=== PATIENT | male | born 1965 | race Caucasian/White ===

== ENCOUNTER 2018-04-08 20:11 | Inpatient (IN) | payer MEDICARE ==
[2018-04-08] MEDS ORDERED: Sodium Chloride 0.9% 1,000 ML IV ONE (20:28)
[2018-04-08] MEDS ORDERED: HYDROmorphone 1 MG/ML Syringe IVPUSH ONE (21:00)
--- NOTE | 2018-04-08 21:08 | EDM.PDOC ---
ED HPI GENERAL MEDICAL PROBLEM - General Chief Complaint: General Stated Complaint: fever, back spasms Time Seen by Provider: 04/08/18 20:23 Source of Information: Reports: Patient History Limitations: Reports: No Limitations - History of Present Illness INITIAL COMMENTS - FREE TEXT/NARRATIVE: Pt. presents to ER with complaints of fever, lower extremity pain, erythema and swelling, and back muscle spasms. He states that he has been feeling poorly for several days. Symptoms consist of lightheadedness, chills and fever. He states that he has had increased pain and swelling to his lower legs. notes that they are more erythematous and warm to touch. He has increased discomfort with palpation of manipulation of the feet and lower legs. He has been experiencing the discomfort to the legs and fever and chills for 4 days. He does have a history of psoriasis, but the erythema appears to be an acute problem. Denies any cough, but complains of mild increased dyspnea. States the he took pyridium prior to coming to ER due to increased edema to lower extremities. Onset Date: 04/04/18 Duration: Constant, Getting Worse Associated Symptoms: Reports: Fever/Chills, Shortness of Breath, Other ( lightheadedness) - Related Data Allergies Allergy/AdvReac Type Severity Reaction Status Date / Time Penicillins Allergy Anaphylactic Verified 04/08/18 20:49 Shock venom-honey bee Allergy Anaphylactic Verified 04/08/18 20:49 [bee venom (honey bee)] Shock Home Meds: Home Meds Aspirin [Ecotrin] 325 mg PO DAILY 09/12/13 [History] Cyclobenzaprine [Flexeril] 10 mg PO TID 09/12/13 [History] Diazepam [Valium] 2 mg PO TID 09/12/13 [History] Ibuprofen [Advil Migraine] 200 mg PO BID 09/12/13 [History] Pregabalin [Lyrica] 200 mg PO TID 09/12/13 [History] hydrOXYzine pamoate [Vistaril] 50 mg PO QID PRN 09/12/13 [History] Docusate Sodium/Sennosides [Senna Plus] 2 tab PO BID 09/09/15 [History] Magnesium Oxide/Mag AA Chelate [Magnesium] 300 mg PO BID 09/09/15 [History] Ranitidine HCl [Zantac] 75 mg PO BID PRN 09/09/15 [History] EPINEPHrine [Epipen] 1 pen IM ASDIRECTED PRN 04/08/18 [History] oxyCODONE HCl [Oxycodone HCl] 10 mg PO Q4H PRN 04/08/18 [History] oxyCODONE HCl [Oxycontin] 40 mg PO TID 04/08/18 [History] Past Medical History Musculoskeletal History: Reports: Back Pain, Chronic Psychiatric History: Reports: Depression Dermatologic History: Reports: Psoriasis Other Dermatologic History: knees, back of ears, feet - Past Surgical History Musculoskeletal Surgical History: Reports: Other (See Below) 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 Social & Family History - Family History Family Medical History: Noncontributory Other Dermatologic Family History: Adopted - Tobacco Use Smoking Status *Q: Current Every Day Smoker Years of Tobacco use: 30 Packs/Tins Daily: 1 - Recreational Drug Use Recreational Drug Use: No ED ROS GENERAL - Review of Systems Review Of Systems: See Below Constitutional: Reports: Fever, Chills, Malaise, Fatigue HEENT: Reports: No Symptoms Respiratory: Reports: Shortness of Breath Cardiovascular: Reports: No Symptoms Endocrine: Reports: No Symptoms GI/Abdominal: Reports: No Symptoms : Reports: No Symptoms Musculoskeletal: Reports: Other (See HPI.) Skin: Reports: No Symptoms Neurological: Reports: No Symptoms Psychiatric: Reports: No Symptoms Hematologic/Lymphatic: Reports: No Symptoms Immunologic: Reports: No Symptoms ED EXAM, GENERAL - Physical Exam Exam: See Below Exam Limited By: No Limitations General Appearance: Alert, WD/WN, No Apparent Distress Eye Exam: Bilateral Eye: EOMI, Normal Fundi, Normal Inspection, PERRL Throat/Mouth: Normal Inspection, Normal Lips, Normal Oropharynx, Normal Voice, No Airway Compromise Head: Atraumatic, Normocephalic Neck: Normal Inspection, Supple, Non-Tender, Full Range of Motion Respiratory/Chest: No Respiratory Distress, Lungs Clear, Normal Breath Sounds, No Accessory Muscle Use, Chest Non-Tender Cardiovascular: Normal Peripheral Pulses, No Gallop, No JVD, No Rub, Tachycardia Peripheral Pulses: 3+: Radial (R) GI/Abdominal: Normal Bowel Sounds, Soft, Non-Tender, No Organomegaly, No Distention, No Abnormal Bruit, No Mass (Male) Exam: Deferred Rectal (Males) Exam: Deferred Back Exam: Normal Inspection, Full Range of Motion, Muscle Spasm, Paraspinal Tenderness. No: CVA Tenderness (L), CVA Tenderness (R) Extremities: Other (peripheral edema, erythema, and discomfort to lower extremities) Neurological: Alert, Oriented, CN II-XII Intact, Normal Cognition, Normal Gait, Normal Reflexes, No Motor/Sensory Deficits Psychiatric: Normal Affect, Normal Mood Skin Exam: Erythema (lower extremities) Lymphatic: No Adenopathy Course - Vital Signs Last Recorded V/S: Last Vital Signs Temp 39.3 C H 04/08/18 22:25 Pulse 94 04/08/18 22:25 Resp 16 04/08/18 22:25 BP 129/73 04/08/18 22:25 Pulse Ox 97 04/08/18 22:25 - Orders/Labs/Meds Orders: Active Orders 24 hr Category Date Time Status Patient Status [ADT] Routine ADT 04/08/18 22:58 Ordered EKG Documentation Completion [RC] STAT Care 04/08/18 20:24 Active Chest 1V Frontal [CR] Stat Exams 04/08/18 20:25 Taken Chest w Cont [CT] Stat Exams 04/08/18 21:23 Taken CULTURE BLOOD [BC] Stat Lab 04/08/18 20:28 Received CULTURE BLOOD [BC] Stat Lab 04/08/18 20:50 Received Sodium Chloride 0.9% [Saline Flush] Med 04/08/18 20:24 Active 10 ml FLUSH ASDIRECTED PRN Blood Culture x2 Reflex Set [OM.PC] Stat Oth 04/08/18 20:24 Ordered Peripheral IV Insertion Adult [OM.PC] Routine Oth 04/08/18 20:24 Ordered Medication Orders Sodium Chloride (Saline Flush) 10 ml FLUSH ASDIRECTED PRN PRN Reason: Keep Vein Open Labs: Laboratory Tests 04/08/18 04/08/18 04/08/18 Range/Units 20:24 20:28 20:50 WBC 15.0 H (4.0-10.0) x10^3/uL RBC 4.10 L (4.5-6.0) x10^6/uL Hgb 12.4 L (14.0-18.0) g/dL Hct 36.2 L (40.0-52.0) % MCV 88.3 (78.0-93.0) fL MCH 30.2 (26.0-32.0) pg MCHC 34.3 (32.0-36.0) g/dL RDW Coeff of Seth 15.8 H (10.0-15.0) % Plt Count 308 (130-400) x10^3/uL Neut % (Auto) 73.5 (50.0-80.0) % Lymph % (Auto) 17.3 L (25.0-50.0) % Jones % (Auto) 7.7 (2.0-11.0) % Eos % (Auto) 1.0 (0.0-4.0) % Baso % (Auto) 0.5 (0.2-1.2) % PT 9.5 L (9.6-11.4) SEC INR 0.9 L (2.0-3.5) Sodium (136-145) mmol/L Potassium (3.5-5.1) mmol/L Chloride (98-107) mmol/L Carbon Dioxide (21-32) mmol/L Anion Gap (10-20) mmol/L BUN (7-18) mg/dL Creatinine (0.70-1.30) mg/dL Est Cr Clr Drug Dosing mL/min Estimated GFR (MDRD) Glucose (74-106) mg/dL Lactic Acid (0.4-2.0) mmol/L Calcium (8.5-10.1) mg/dL Corrected Calcium (8.5-10.1) mg/dL Phosphorus (2.6-4.7) mg/dL Magnesium (1.8-2.4) mg/dL Total Bilirubin (0.2-1.0) mg/dL AST (15-37) U/L ALT (16-63) U/L Alkaline Phosphatase (46-116) U/L Troponin I (<=0.056) ng/mL C-Reactive Protein (<=0.9) mg/dL NT-Pro-B Natriuret Pep (<=125) pg/mL Total Protein (6.4-8.2) g/dL Albumin (3.4-5.0) g/dL Globulin Albumin/Globulin Ratio TSH, Ultra Sensitive (0.358-3.74) uIU/mL Urine Color [place] H (YELLOW) Urine Appearance Slightly cloudy H (CLEAR) Urine pH 5.5 (5.0-8.0) Ur Specific [place] 1.015 Urine Protein Trace H (NEGATIVE) mg/dL Urine Glucose (UA) 100 H (NEGATIVE) mg/dL Urine Ketones Negative (NEGATIVE) mg/dL Urine Occult Blood Negative (NEGATIVE) Urine Nitrite Positive H (NEGATIVE) Urine Bilirubin Negative (NEGATIVE) Urine Urobilinogen 1.0 (0.2) EU/dL Ur Leukocyte Esterase Negative (NEGATIVE) Urine RBC 0-5 (NOT SEEN) /HPF Urine WBC 0-5 (NOT SEEN) /HPF Ur Squamous Epith Cells Not seen (NEGATIVE) /HPF Urine Bacteria Few H (NEGATIVE) /HPF Urine Mucus Rare H (NEGATIVE) /LPF 04/08/18 04/08/18 Range/Units 20:50 20:50 WBC (4.0-10.0) x10^3/uL RBC (4.5-6.0) x10^6/uL Hgb (14.0-18.0) g/dL Hct (40.0-52.0) % MCV (78.0-93.0) fL MCH (26.0-32.0) pg MCHC (32.0-36.0) g/dL RDW Coeff of Seth (10.0-15.0) % Plt Count (130-400) x10^3/uL Neut % (Auto) (50.0-80.0) % Lymph % (Auto) (25.0-50.0) % Jones % (Auto) (2.0-11.0) % Eos % (Auto) (0.0-4.0) % Baso % (Auto) (0.2-1.2) % PT (9.6-11.4) SEC INR (2.0-3.5) Sodium 134 L (136-145) mmol/L Potassium 3.8 (3.5-5.1) mmol/L Chloride 102 (98-107) mmol/L Carbon Dioxide 24 (21-32) mmol/L Anion Gap 11.8 (10-20) mmol/L BUN 11 D (7-18) mg/dL Creatinine 1.3 D (0.70-1.30) mg/dL Est Cr Clr Drug Dosing 72.40 mL/min Estimated GFR (MDRD) 58 Glucose 111 H (74-106) mg/dL Lactic Acid 0.9 (0.4-2.0) mmol/L Calcium 8.7 (8.5-10.1) mg/dL Corrected Calcium 9.26 (8.5-10.1) mg/dL Phosphorus 2.2 L (2.6-4.7) mg/dL Magnesium 1.9 (1.8-2.4) mg/dL Total Bilirubin 0.3 (0.2-1.0) mg/dL AST 22 (15-37) U/L ALT 30 (16-63) U/L Alkaline Phosphatase 96 (46-116) U/L Troponin I < 0.017 (<=0.056) ng/mL C-Reactive Protein 12.2 H (<=0.9) mg/dL NT-Pro-B Natriuret Pep 116 (<=125) pg/mL Total Protein 7.6 (6.4-8.2) g/dL Albumin 3.3 L (3.4-5.0) g/dL Globulin 4.3 Albumin/Globulin Ratio 0.77 TSH, Ultra Sensitive 1.393 (0.358-3.74) uIU/mL Urine Color (YELLOW) Urine Appearance (CLEAR) Urine pH (5.0-8.0) Ur Specific [place] Urine Protein (NEGATIVE) mg/dL Urine Glucose (UA) (NEGATIVE) mg/dL Urine Ketones (NEGATIVE) mg/dL Urine Occult Blood (NEGATIVE) Urine Nitrite (NEGATIVE) Urine Bilirubin (NEGATIVE) Urine Urobilinogen (0.2) EU/dL Ur Leukocyte Esterase (NEGATIVE) Urine RBC (NOT SEEN) /HPF Urine WBC (NOT SEEN) /HPF Ur Squamous Epith Cells (NEGATIVE) /HPF Urine Bacteria (NEGATIVE) /HPF Urine Mucus (NEGATIVE) /LPF Meds: Medications Generic Name Dose Route Start Last Admin Trade Name Freq PRN Reason Stop Dose Admin Sodium Chloride 10 ml 04/08/18 20:24 Saline Flush FLUSH ASDIRECTED PRN Keep Vein Open Discontinued Medications Generic Name Dose Route Start Last Admin Trade Name Freq PRN Reason Stop Dose Admin Ceftriaxone Sodium 2 gm 04/08/18 21:21 04/08/18 21:27 Rocephin IVPUSH 04/08/18 21:22 2 gm STAT ONE Administration Hydromorphone HCl 1 mg 04/08/18 21:00 04/08/18 21:06 Dilaudid IVPUSH 04/08/18 21:01 1 mg ONETIME ONE Administration Sodium Chloride 1,000 mls @ 1,000 mls/hr 04/08/18 20:28 04/08/18 20:32 Normal Saline IV 04/08/18 21:27 1,000 mls/hr .BOLUS ONE Administration Iopamidol 100 ml 04/08/18 21:39 04/08/18 21:55 Isovue-300 (61%) IVPUSH 04/08/18 21:40 100 ml ONETIME ONE Administration Lorazepam 1 mg 04/08/18 21:42 04/08/18 21:46 Ativan IVPUSH 04/08/18 21:43 1 mg ONETIME ONE Administration - Radiology Interpretation Free Text/Narrative:: bilateral hilar adenopathy with pleural nodule of infectious etiology noted on CT scan of chest. No other acute pathology noted. Departure - Departure Time of Disposition: 23:08 Disposition: Admitted As Inpatient 68 Condition: Good Clinical Impression: CAP (community acquired pneumonia), UTI (urinary tract infection) - Discharge Information Referrals: Jay Jay Whalen MD [Primary Care Provider] - Forms: ED Department Discharge - Problem List Review Problem List Initiated/Reviewed/Updated: Yes - My Orders Last 24 Hours: My Active Orders 04/08/18 20:24 EKG Documentation Completion [RC] STAT Sodium Chloride 0.9% [Saline Flush] 10 ml FLUSH ASDIRECTED PRN Blood Culture x2 Reflex Set [OM.PC] Stat Peripheral IV Insertion Adult [OM.PC] Routine 04/08/18 20:25 Chest 1V Frontal [CR] Stat 04/08/18 20:28 CULTURE BLOOD [BC] Stat 04/08/18 20:50 CULTURE BLOOD [BC] Stat 04/08/18 21:23 Chest w Cont [CT] Stat 04/08/18 22:58 Patient Status [ADT] Routine - Assessment/Plan Last 24 Hours: My Active Orders 04/08/18 20:24 EKG Documentation Completion [RC] STAT Sodium Chloride 0.9% [Saline Flush] 10 ml FLUSH ASDIRECTED PRN Blood Culture x2 Reflex Set [OM.PC] Stat Peripheral IV Insertion Adult [OM.PC] Routine 04/08/18 20:25 Chest 1V Frontal [CR] Stat 04/08/18 20:28 CULTURE BLOOD [BC] Stat 04/08/18 20:50 CULTURE BLOOD [BC] Stat 04/08/18 21:23 Chest w Cont [CT] Stat 04/08/18 22:58 Patient Status [ADT] Routine Plan: will be admitted acute, Dr. Reyna for [facility]. He is a code 1. He was given a liter of NS IV and rocephin 2 gm IV. Family is in attendance.
[2018-04-08 21:21] LABS: CHLORIDE,CL 102 mmol/L (98-107); SODIUM,NA 134 mmol/L (136-145)
[2018-04-08] MEDS ORDERED: cefTRIAXone 2 GM Vial IVPUSH ONE (21:21)
[2018-04-08 21:22] LABS: ANION GAP 11.8 mmol/L (10-20)
[2018-04-08] MEDS ORDERED: Iopamidol 612 MG/ML 100 ML Bottle IVPUSH ONE (21:39)
[2018-04-08] MEDS ORDERED: LORazepam 2 MG/ML SDV IVPUSH ONE (21:42)
[2018-04-08] MEDS ORDERED: Acetaminophen 500 MG Tab PO ONE (23:02)
[2018-04-08] MEDS ORDERED: EPINEPHrine 1 MG/ML SDV IM PRN (23:43)
[2018-04-08] MEDS ORDERED: hydrOXYzine HCl 25 MG Tab PO PRN (23:43)
[2018-04-08] MEDS ORDERED: RANITIDINE HCL 75 MG PO PRN (23:43)
[2018-04-08] MEDS ORDERED: oxyCODONE 5 MG Tab PO PRN (23:43)
[2018-04-08] MEDS: Sodium Chloride 0.9% 1,000 ML IV SCH (23:45)
[2018-04-08] MEDS ORDERED: HYDROmorphone 1 MG/ML Syringe IVPUSH PRN (23:46)
[2018-04-08] MEDS ORDERED: Promethazine 25 MG Tab PO PRN (23:46)
[2018-04-08] MEDS ORDERED: Ibuprofen 200 MG Tab PO PRN (23:52)
[2018-04-08] MEDS: Sodium Chloride 0.9% 10 ML Syringe FLUSH PRN (23:57)
[2018-04-09] MEDS ORDERED: Famotidine 20 MG Tab PO PRN (00:05)
[2018-04-09] MEDS ORDERED: Acetaminophen 325 MG Tab PO PRN (00:07)
[2018-04-09] MEDS: Pregabalin 50 MG Cap PO SCH ×4 (00:31→22:27)
[2018-04-09] MEDS: Aspirin 325 MG Tab.EC PO SCH ×2 (00:32→07:29)
[2018-04-09] MEDS: Diazepam 2 MG Tab PO SCH ×4 (00:33→22:27)
[2018-04-09] MEDS: Azithromycin 500 MG in Sodium Chloride 0.9% 250 ML IV SCH ×2 (00:35→20:04)
--- NOTE | 2018-04-09 04:02 | HP ---
CHIEF COMPLAINT: Cough, fever, and chills. HISTORY OF PRESENT ILLNESS: This is a 52-year-old male who did run out of his pain pills about 4 days ago, but did get them refilled today. Yesterday, he began having fevers in the evening. He has been coughing for a few days prior to that. It is nonproductive. He had no shortness of breath. He denied any new abdominal pain, nausea, or vomiting, but does have some abdominal discomfort from a previous back surgery that was done through an anterior approach. He has had significant back history of 6 surgeries and continued phantom pain in his legs. He states that has not changed. He otherwise has only a history of pneumonia when he was a little kid. He does have psoriasis on his skin. He has some tenderness over the right leg, but on the left ankle, there was a little bit of redness and warmth, potentially a cellulitis. He came into the emergency room tonight for his symptoms. He ended up with a chest CT, which showed him to have findings consistent with an infectious process in the bilateral hilar and mediastinal lymphadenopathy. CT was done due to changes found on the chest x- ray. The patient denies any chest pain. He did get 1 mg of Dilaudid in the ER. Blood pressure was quite elevated, pulse was over 100. At one point, his temperature went up to 104.3. The patient received Rocephin in the ER. ALLERGIES: Include penicillin and bee venom. MEDICATIONS: His medication list is reviewed. Lyrica 200 3 times a day, OxyContin 40 3 times a day, Valium 2 mg 3 times a day, Vistaril 4 times a day as needed for anxiety, oxycodone 10 mg every 4 hours as needed for severe pain, Flexeril 10 mg 3 times a day, aspirin 325 daily, epinephrine as needed for bee stings, Motrin 200 mg twice daily, and senna plus 2 tabs b.i.d. PAST MEDICAL HISTORY: Includes previous lumbar disk herniation with multiple surgeries, history of depression, psoriasis, hyperlipidemia, previous elevated liver enzymes, he denies any significant alcohol use, chronic low back pain, smoking, essential hypertension, left leg weakness, and chronic opioid use. PAST SURGICAL HISTORY: The patient has had multiple back surgeries as reported above. SOCIAL HISTORY: He is . He does smoke. He rarely drinks alcohol. FAMILY HISTORY: He is adopted. REVIEW OF SYSTEMS: General: No weight changes, but has had fever and chills. HEENT: No sore throat, but he has had some sinus congestion. Cardiac: No chest pain, palpitations, or shortness of breath. Respiratory: He has had cough. GI: As stated in the HPI. : He denied any burning with urination. He did try to take an azo pill for some reason. There was some question if he had a UTI or not, but he had 0 to 5 wbcs and rbcs. Musculoskeletal: He has a chronic back pain. No changes there. Otherwise, all systems reviewed and found to be negative unless otherwise stated. He does have a little bit more anxiety this evening possibly due to acute illness. On skin exam, he has psoriasis, which is unchanged. PHYSICAL EXAMINATION: Vital Signs: Weight 90.7 kg, temp 102.7, pulse 94, respiratory rate 16, O2 97% on room air, initially 94 on room air, and blood pressure 129/73. General: He is in no acute distress. Heart: Regular rate and rhythm with mild tachycardia and a murmur. Lungs: Sounds are decreased especially over the right base. No crackles or wheezes appreciated. Abdomen: Nondistended. Mildly tender over the left side. He reports this is chronic muscle pain. Extremities: Warm and dry. He has just trace edema and warmth with minimal redness over the left ankle with some psoriasis changes to both legs. He reports more tenderness over a lateral psoriasis lesion on the right calf. Left foot drop which is chronic. Mental Status: He is alert. He is orientated x3. He is answering questions appropriately. LABORATORY DATA: White count 15, hemoglobin 12.4, and platelets 308. INR is 0.9. Sodium 134, potassium 3.8, chloride 102, bicarb 24, BUN 11, creatinine 1.3, glucose 111, lactic 0.9, calcium 8.7, phosphorus 2.2, mag 1.9, bili 0.3, AST 22, ALT 30. Troponin negative. CRP elevated 12.2. BNP 116. Albumin 3.3. TSH 1.3. UA did show positive nitrates, but 0 to 5 rbc and wbc. Chest x-ray reviewed, no significant infiltrate appreciated, but CT again findings did show the multiple segmental and subsegmental areas of peripheral consolidation. EKG showed a sinus rhythm with QTc 385, minimally short [place] interval, rate 94. ASSESSMENT AND PLAN: 1. Sepsis due to a community-acquired pneumonia with fever, tachycardia, and leukocytosis may also be some element of opioid withdrawal. However, he has been restarted on his opioids today. 2. Chronic opioid use and dependence. 3. Chronic back pain and lumbar radiculopathy, status post multiple back surgeries. 4. Essential hypertension, elevated on admission, but improved with pain management. 5. Psoriasis with some left lower extremity possible cellulitis. His antibiotics will cover for that as well. 6. Underlying mood disorder with anxiety. He has hydroxyzine p.r.n. 7. Smoking. PLAN: At this point, the patient is admitted for acute cares. I will go ahead and continue IV Rocephin 1 g daily. I will start him on some IV Zithromax this evening. We will do sputum cultures. Blood cultures have already been sent. We will repeat a lactic acid. We will repeat lab work in the morning. The patient will continue on IV fluids. We will have him on incentive spirometry. We will continue with pain management medications as the same as at home and I will have some p.r.n. Dilaudid available. He will be able to take Motrin and Tylenol for fevers. The patient is a code level 1. For DVT prophylaxis, he will be on Lovenox. Influenza testing planned. MKA: 04/09/2018 00:06:48 MODL: 04/09/2018 03:56:06 /[id number]
[2018-04-09] MEDS: Enoxaparin 40 MG/0.4 ML Syringe SUBCUT SCH (06:29)
[2018-04-09 07:23] LABS: ANION GAP 8.7 mmol/L (10-20)
[2018-04-09] MEDS ORDERED: Cyclobenzaprine 10 MG Tab PO SCH (08:00)
[2018-04-09] MEDS ORDERED: oxyCODONE ER 20 MG TAB.ER PO SCH ×2 (08:00→14:00)
[2018-04-09] MEDS ORDERED: Diazepam 2 MG Tab PO SCH (08:00)
[2018-04-09] MEDS: Magnesium Oxide 400 MG Tab PO SCH ×2 (09:01→19:57)
[2018-04-09] MEDS: Nicotine 14 MG/24 Hr Patch TRDERM SCH (09:02)
[2018-04-09] MEDS: Sodium Chloride 0.9% 1,000 ML IV SCH ×2 (10:07→18:04)
[2018-04-09] MEDS: Cyclobenzaprine 10 MG Tab PO SCH ×2 (13:08→22:26)
--- NOTE | 2018-04-09 15:41 | PN ---
Progress Note for THIEN TOSCANO Date: 04/09/2018 Room #: VM.215 SUBJECTIVE: This is hospital day #2 on a 52-year-old admitted last evening with sepsis due to community-acquired pneumonia. The patient's fever has gone down overnight from a T-max of 104.3 around midnight to 100.6 around 6 a.m. He states he is a little bit out of it at times. He is still coughing, but he is not coughing up anything. He has some burning in his chest. It is worse with deep breaths. He did have a CT that was negative for PE last night. He otherwise has muscular pains in his muscles on the abdomen, but no abdominal pain and no nausea, no vomiting. He was also suspected to have a cellulitis on his left lower extremity. He did get IV Rocephin and IV Zithromax. He does state that not smoking will cause him to be a little anxious. He would like a nicotine patch. He has not received any additional doses of IV Dilaudid or any p.r.n. oxycodone. He has only been on his scheduled OxyContin 40 mg t.i.d. that he was on at home. OBJECTIVE: Vital Signs: His temperature 100.6, pulse 89, blood pressure 126/72, respiratory rate 20, and O2 93% on room air. General: He is in no acute distress. Heart: Regular rate and rhythm. Murmur is not appreciated this morning. Lungs: Sounds are clear to auscultation bilaterally without crackles or wheezes. Much clearer than admission. Abdomen: Nondistended. No significant tenderness. He points to both upper and lateral areas as an area of discomfort in the muscles. Skin: Does still show some redness with psoriasis plaquing over the left al area. No tenderness. No edema. Extremities: He does have a chronic left footdrop. Mental Status: He is alert and orientated x3. He is aware that he is at [facility]. LABORATORY DATA: Lab work showed white count improved from 15 to 11.7, hemoglobin 12.4, platelets 298. Sodium 138, potassium 3.7, chloride 105, bicarb 28, BUN 9, creatinine 1.3. Lactic acid 0.7. Flu testing is negative. ASSESSMENT AND PLAN: 1. Sepsis related to community-acquired pneumonia. Blood cultures and sputum cultures are pending. We will continue IV Rocephin and IV Zithromax. The patient was only admitted less than 12 hours ago. 2. Chronic pain and opioid use with dependence. He is overly sedated now that he is back on his Valium and OxyContin. He had been off it for several days. I am going to decrease his OxyContin to 20 mg t.i.d., which is 50% reduction in dose. 3. Chronic back pain with lumbar radiculopathy, status post multiple back surgeries. 4. Essential hypertension, blood pressure controlled. He is on no medications. 5. Psoriasis. 6. Anxiety. 7. DVT prophylaxis. He is on Lovenox. 8. Smoking. We will start a nicotine patch. PLAN: At this point, patient will continue with acute cares with IV fluids and IV antibiotics. We will repeat lab work tomorrow. Anticipate if he continues to improve, he will be discharged as soon as tomorrow on oral antibiotics. MKA: 04/09/2018 15:00:01 MODL: 04/09/2018 15:35:31 /[id number]
[2018-04-09] MEDS: Sodium Chloride 0.9% 10 ML Syringe FLUSH PRN (19:57)
[2018-04-09] MEDS: cefTRIAXone 1 GM Vial IVPUSH SCH (19:57)
[2018-04-09] MEDS: oxyCODONE ER 20 MG TAB.ER PO SCH (22:29)
[2018-04-10] MEDS: Sodium Chloride 0.9% 1,000 ML IV SCH (02:14)
[2018-04-10] MEDS: Enoxaparin 40 MG/0.4 ML Syringe SUBCUT SCH (06:07)
[2018-04-10 07:06] LABS: ANION GAP 11.6 mmol/L (10-20); CHLORIDE,CL 107 mmol/L (98-107); SODIUM,NA 138 mmol/L (136-145)
[2018-04-10] MEDS: Diazepam 2 MG Tab PO SCH ×3 (08:30→22:41)
[2018-04-10] MEDS: Pregabalin 50 MG Cap PO SCH ×3 (08:30→22:40)
[2018-04-10] MEDS: Cyclobenzaprine 10 MG Tab PO SCH ×3 (08:30→22:41)
[2018-04-10] MEDS: oxyCODONE ER 20 MG TAB.ER PO SCH ×3 (08:30→22:41)
[2018-04-10] MEDS: Aspirin 325 MG Tab.EC PO SCH (08:30)
[2018-04-10] MEDS ORDERED: Azithromycin 250 MG Tab PO SCH ×2 (08:30→20:00)
[2018-04-10] MEDS: Magnesium Oxide 400 MG Tab PO SCH ×2 (08:30→19:34)
[2018-04-10] MEDS: Nicotine 14 MG/24 Hr Patch TRDERM SCH (08:31)
[2018-04-10] MEDS: Albuterol/Ipratropium 3.0-0.5 MG/3 ML Neb Soln NEB PRN (08:58)
--- NOTE | 2018-04-10 09:21 | PN ---
Progress Note for THIEN TOSCANO Date: 04/10/2018 Room #: VM.215 SUBJECTIVE: This is full hospital day #2 on a 52-year-old admitted with fever. He states now he had fever for several days before he came in, mostly at night. He had no fever yesterday until during the night he went up to 102. He states he got panicky. He had a hard time breathing. The same thing was happening at home. He was wheezing. He has no history of asthma, but he has been a smoker. He otherwise states his pain has been under good control, but he did not sleep well due to the fever. His cough is still dry, it has not gotten any better or worse. OBJECTIVE: Vital Signs: His T-max was 102.2 at 2:00 a.m. Current temperature 97.8, pulse 90, blood pressure 123/79, respiratory rate 18, O2 of 93% on room air. General: He is in no acute distress. Heart: Regular rate and rhythm. Lungs: Lung sounds are clear to auscultation bilaterally without crackles or wheezes. Extremities: Warm and dry. The redness over the left leg has resolved. He still has psoriasis changes. Left footdrop is still noted. Mental Status: He is alert and orientated x3. LABORATORY DATA: White count 9.8, hemoglobin 11.3, platelets 273. Sodium 138, potassium 3.6, chloride 107, bicarb 23, BUN 10, creatinine 1.1, calcium 8.3. ASSESSMENT: 1. Sepsis related to community-acquired pneumonia, improving. He had just 1 fever in the last 24 hours. Blood cultures have been negative. He has been unable to obtain sputum. We will continue IV Rocephin and switch his Zithromax over to oral. We will continue with another day of treatment due to recent fever. 2. Chronic pain and opioid use and dependence. He is actually requiring significantly lower doses here and feels his pain is under control. He has not used 1 p.r.n. oxycodone, and due to sedation from 40 mg of OxyContin, I decreased him to 20 mg t.i.d. and that seems to be going well. 3. Chronic back pain with lumbar radiculopathy, status post multiple surgeries. 4. Essential hypertension. Blood pressure is controlled off medications. 5. Psoriasis. 6. Anxiety. 7. Deep venous thrombosis prophylaxis. He is on Lovenox. 8. Smoking, on the nicotine patch. PLAN: At this point, we will continue acute cares with IV Rocephin, oral Zithromax and continue to monitor for further fevers. At this point, he is still doing well and improving. I do not feel further workup for fever of unknown origin is indicated, especially given the fact that he had ran out of his pain pills prior to coming in, and this certainly could have caused some of the discomfort and anxiety with fevers at home; however, he was 104 here, now improved down to 102. MKA: 04/10/2018 08:32:27 MODL: 04/10/2018 09:12:41 /[id number]
[2018-04-10] MEDS: Sodium Chloride 0.9% 10 ML Syringe FLUSH PRN ×2 (19:32→19:39)
[2018-04-10] MEDS: cefTRIAXone 1 GM Vial IVPUSH SCH (19:33)
[2018-04-11] MEDS: Enoxaparin 40 MG/0.4 ML Syringe SUBCUT SCH (06:18)
[2018-04-11] MEDS: Albuterol/Ipratropium 3.0-0.5 MG/3 ML Neb Soln NEB PRN (07:08)
[2018-04-11] MEDS: Cyclobenzaprine 10 MG Tab PO SCH (08:06)
[2018-04-11] MEDS: Aspirin 325 MG Tab.EC PO SCH (08:06)
[2018-04-11] MEDS: Nicotine 14 MG/24 Hr Patch TRDERM SCH (08:07)
[2018-04-11] MEDS: Pregabalin 50 MG Cap PO SCH (08:08)
[2018-04-11] MEDS: oxyCODONE ER 20 MG TAB.ER PO SCH (08:09)
[2018-04-11] MEDS: Magnesium Oxide 400 MG Tab PO SCH (08:09)
[2018-04-11] MEDS: Diazepam 2 MG Tab PO SCH (08:09)
[2018-04-11 10:06] VITALS: BP 135/79
--- NOTE | 2018-04-11 19:44 | PCM.DCSUM1 ---
Discharge Summary - Hospital Course Free Text/Narrative:: Patient presented to the ER with a 1 day hx of fever and chills. He had been coughing a couple days prior. Was found to have an elevated WBC to 15 in the ER temp over 102 [address] bilateral pneumonia on [address]. He had a negative flu test. He was started in IV Rocephin and Zithromax. He had a T max of 104 did spike to 102 again the next night but did remain afebrile for 24 hrs prior to discharge. Breathing was good and he did not require oxygen. He required significantly less pain medications during his stay as documented by the pharmacy. His doses were cut down by 50 % and he actually did not use any prn oxycodone. He was very sedated from scheduled meds. He was on Lovenox for DVT prophylaxis. His WBC count improved. Kidney function remained stable and he received tylenol for fevers. He had reported running out of pain meds until the day of admission although scripts appear to have been filled on 04/04 by [place] [facility]. Takes pain pills chronically for history of back surgeries and chronic left foot drop. Did use some nebs which helped with his cough and feeling of "can't breath" He states he had a machine at home. He got the nicotine patch also during his stay and was encouraged to quit smoking. Diagnosis: Stroke: No - Discharge Data Discharge Date: 04/11/18 Discharge Disposition: Home, Self-Care 01 Condition: Good - Discharge Diagnosis/Problem(s) (1) CAP (community acquired pneumonia) SNOMED Code(s): 482806945 ICD Code: J18.9 - PNEUMONIA, UNSPECIFIED ORGANISM Status: Acute Priority : High Qualifiers: Laterality: unspecified laterality Qualified Code(s): J18.9 - Pneumonia, unspecified organism (2) Anxiety SNOMED Code(s): 60766853 ICD Code: F41.9 - ANXIETY DISORDER, UNSPECIFIED Status: Chronic Priority : Medium (3) Chronically on opiate therapy SNOMED Code(s): 897561734 ICD Code: Z79.891 - PENITENTIARY (CURRENT) USE OF OPIATE ANALGESIC Status: Chronic Priority: Medium (4) Depression SNOMED Code(s): 87844364 ICD Code: F32.9 - MAJOR DEPRESSIVE DISORDER, SINGLE EPISODE, UNSPECIFIED Status: Chronic Priority: Medium Qualifiers: Depression Type: unspecified Qualified Code(s): F32.9 - Major depressive disorder, single episode, unspecified (5) Hyperlipidemia SNOMED Code(s): 61614223 ICD Code: E78.5 - HYPERLIPIDEMIA, UNSPECIFIED Status: Chronic Priority: Low Qualifiers: Hyperlipidemia type: unspecified Qualified Code(s): E78.5 - Hyperlipidemia , unspecified (6) Hypertension SNOMED Code(s): 66105476 ICD Code: I10 - ESSENTIAL (PRIMARY) HYPERTENSION Status: Chronic Priority : Medium Problem Details: BP improved significantly after dilaudid in the ER, he received no further IV pain medications Qualifiers: Hypertension type: essential hypertension Qualified Code(s): I10 - Essential (primary) hypertension (7) Lumbar radiculopathy SNOMED Code(s): 961286581 ICD Code: M54.16 - RADICULOPATHY, LUMBAR REGION Status: Chronic Priority : Medium (8) Psoriasis SNOMED Code(s): 3465050 ICD Code: L40.9 - PSORIASIS, UNSPECIFIED Status: Chronic Priority: Medium Problem Details: possibly some left lower extremity celluitis also (9) Smoker SNOMED Code(s): 09927290 ICD Code: F17.200 - NICOTINE DEPENDENCE, UNSPECIFIED, UNCOMPLICATED Status : Chronic Priority: Medium (10) Sepsis SNOMED Code(s): 07596878 ICD Code: A41.9 - SEPSIS, UNSPECIFIED ORGANISM Status: Acute Priority: High Qualifiers: Sepsis type: sepsis due to unspecified organism Qualified Code(s): A41.9 - Sepsis, unspecified organism (11) Cellulitis SNOMED Code(s): 484571350 ICD Code: L03.90 - CELLULITIS, UNSPECIFIED Status: Acute Priority: High - Patient Instructions Diet: Usual Diet as Tolerated Activity: As Tolerated Notify Provider of: Fever, Nausea and/or Vomiting - Discharge Plan *PRESCRIPTION DRUG MONITORING PROGRAM REVIEWED*: Yes *COPY OF PRESCRIPTION DRUG MONITORING REPORT IN PATIENT ORI: No Prescriptions/Med Rec: Albuterol/Ipratropium [DuoNeb 3.0-0.5 MG/3 ML] 3 ml NEB Q4HRRT PRN #30 neb PRN Reason: Cough Nicotine [Habitrol] 14 mg TRDERM DAILY #30 patch Home Medications: Home Meds Aspirin [Ecotrin] 325 mg PO DAILY 09/12/13 [History] Cyclobenzaprine [Flexeril] 10 mg PO TID PRN 09/12/13 [History] Diazepam [Valium] 2 mg PO TID PRN 09/12/13 [History] Ibuprofen [Advil Migraine] 600 mg PO BID 09/12/13 [History] hydrOXYzine pamoate [Vistaril] 50 mg PO QID PRN 09/12/13 [History] Docusate Sodium/Sennosides [Senna Plus] 2 tab PO BID 09/09/15 [History] Magnesium Oxide/Mag AA Chelate [Magnesium] 300 mg PO BID 09/09/15 [History] Ranitidine HCl [Zantac] 75 mg PO BID PRN 09/09/15 [History] EPINEPHrine [Epipen] 0.3 mg IM ASDIRECTED PRN 04/08/18 [History] Pregabalin [Lyrica] 200 mg PO BID 04/09/18 [History] Albuterol/Ipratropium [DuoNeb 3.0-0.5 MG/3 ML] 3 ml NEB Q4HRRT PRN #30 neb 04/11 [Rx] Nicotine [Habitrol] 14 mg TRDERM DAILY #30 patch 04/11/18 [Rx] oxyCODONE HCl [Oxycodone HCl] 10 mg PO Q6H PRN #0 04/11/18 [Rx] oxyCODONE HCl [Oxycontin] 40 mg PO BID #0 04/11/18 [Rx] Forms: ED Department Discharge Referrals: Jay Jay Whalen MD [Primary Care Provider] - - Discharge Summary/Plan Comment DC Time >30 min.: Yes - General Info Date of Service: 04/11/18 Functional Status: Reports: Pain Controlled, Tolerating Diet, Ambulating, Urinating - Review of Systems General: Reports: Weakness, Fatigue. Denies: Chills HEENT: Denies: Sinus Congestion, Sore Throat Pulmonary: Reports: Cough. Denies: Shortness of Breath, Pleuritic Chest Pain, Sputum, Wheezing Cardiovascular: Reports: No Symptoms Gastrointestinal: Reports: Constipation. Denies: Diarrhea Genitourinary: Denies: Dysuria, Incontinence Musculoskeletal: Reports: Back Pain Skin: Reports: Rash Neurological: Denies: Confusion, Headache Psychiatric: Reports: Anxiety - Patient Data Vitals - Most Recent: Last Vital Signs Temp 99.7 F 04/11/18 10:00 Pulse 84 04/11/18 10:00 Resp 20 04/11/18 10:00 BP 135/79 04/11/18 10:00 Pulse Ox 97 04/11/18 10:00 Weight - Most Recent: 94.03 kg I&O - Last 24 hours: Intake & Output 04/11/18 04/11/18 04/11/18 06:59 14:59 22:59 Intake Total 350 120 Balance 350 120 ELKE Results - Last 24 hrs: Microbiology 04/08/18 20:50 Aerobic Blood Culture - Preliminary Blood - Venous - Lab Draw NO GROWTH AFTER 2 DAYS Anaerobic Blood Culture - Preliminary NO GROWTH AFTER 2 DAYS 04/08/18 20:28 Aerobic Blood Culture - Preliminary Blood - Venous NO GROWTH AFTER 2 DAYS Anaerobic Blood Culture - Preliminary NO GROWTH AFTER 2 DAYS Med Orders - Current: Current Medications Discontinued Medications Acetaminophen (Tylenol Extra Strength) 1,000 mg PO ONETIME ONE Stop: 04/08/18 23:03 Last Admin: 04/08/18 23:08 Dose: 1,000 mg Acetaminophen (Tylenol) 650 mg PO Q4H PRN PRN Reason: Fever Last Admin: 04/10/18 02:06 Dose: 650 mg Albuterol/Ipratropium (Duoneb 3.0-0.5 Mg/3 Ml) 3 ml NEB Q4HRRT PRN PRN Reason: Cough Last Admin: 04/11/18 07:08 Dose: 3 ml Aspirin (Ecotrin) 325 mg PO DAILY [facility] Last Admin: 04/11/18 08:06 Dose: 325 mg Azithromycin (Zithromax) 500 mg PO DAILY [facility] Last Admin: 04/10/18 09:29 Dose: Not Given Azithromycin (Zithromax) 500 mg PO BEDTIME [facility] Last Admin: 04/10/18 19:33 Dose: 500 mg Ceftriaxone Sodium (Rocephin) 2 gm IVPUSH STAT ONE Stop: 04/08/18 21:22 Last Admin: 04/08/18 21:27 Dose: 2 gm Ceftriaxone Sodium (Rocephin) 1 gm IVPUSH QPM [facility] Last Admin: 04/10/18 19:33 Dose: 1 gm Cefuroxime Axetil (Ceftin) 500 mg PO BID [facility] Cyclobenzaprine HCl (Flexeril) 10 mg PO TID [facility] Last Admin: 04/09/18 07:29 Dose: 10 mg Cyclobenzaprine HCl (Flexeril) 10 mg PO TID@0800,1400,2200 [facility] Last Admin: 04/11/18 08:06 Dose: 10 mg Diazepam (Valium) 2 mg PO TID [facility] Diazepam (Valium) 2 mg PO TID [facility] Last Admin: 04/09/18 07:29 Dose: 2 mg Diazepam (Valium) 2 mg PO TID@0800,1400,2200 [facility] Last Admin: 04/11/18 08:09 Dose: 2 mg Enoxaparin Sodium (Lovenox) 40 mg SUBCUT Q24H [facility] Last Admin: 04/11/18 06:18 Dose: 40 mg Epinephrine HCl (Adrenalin) 0 mg IM ASDIRECTED PRN PRN Reason: Allergies Famotidine (Pepcid) 10 mg PO BID PRN PRN Reason: HEARTBURN Hydromorphone HCl (Dilaudid) 1 mg IVPUSH ONETIME ONE Stop: 04/08/18 21:01 Last Admin: 04/08/18 21:06 Dose: 1 mg Hydromorphone HCl (Dilaudid) 1 mg IVPUSH Q3H PRN PRN Reason: Pain (severe 7-10) Hydroxyzine HCl (Atarax) 50 mg PO QID PRN PRN Reason: Anxiety Last Admin: 04/10/18 00:09 Dose: 50 mg Sodium Chloride (Normal Saline) 1,000 mls @ 1,000 mls/hr IV .BOLUS ONE Stop: 04/08/18 21:27 Last Admin: 04/08/18 20:32 Dose: 1,000 mls/hr Azithromycin 500 mg/ Sodium (Chloride) 250 mls @ 250 mls/hr IV QPM [facility] Last Admin: 04/09/18 20:04 Dose: 250 mls/hr Sodium Chloride (Normal Saline) 1,000 mls @ 125 mls/hr IV ASDIRECTED [facility] Last Admin: 04/10/18 02:14 Dose: 125 mls/hr Ibuprofen (Motrin) 400 mg PO Q4H PRN PRN Reason: Pain/Fever Iopamidol (Isovue-300 (61%)) 100 ml IVPUSH ONETIME ONE Stop: 04/08/18 21:40 Last Admin: 04/08/18 21:55 Dose: 100 ml Lorazepam (Ativan) 1 mg IVPUSH ONETIME ONE Stop: 04/08/18 21:43 Last Admin: 04/08/18 21:46 Dose: 1 mg Magnesium Oxide (Magnesium Oxide) 400 mg PO BID [facility] Last Admin: 04/11/18 08:09 Dose: 400 mg Nicotine (Habitrol) 14 mg TRDERM DAILY [facility] Last Admin: 04/11/18 08:07 Dose: 14 mg Oxycodone HCl (Oxycodone) 10 mg PO Q4H PRN PRN Reason: Pain Oxycodone HCl (Oxycontin) 40 mg PO TID [facility] Last Admin: 04/09/18 07:29 Dose: 40 mg Oxycodone HCl (Oxycontin) 40 mg PO TID@0800,1400,2200 [facility] Last Admin: 04/09/18 13:07 Dose: 40 mg Oxycodone HCl (Oxycontin) 20 mg PO TID@0800,1400,2200 [facility] Last Admin: 04/11/18 08:09 Dose: 20 mg Pregabalin (Lyrica) 200 mg PO TID [facility] Last Admin: 04/09/18 07:30 Dose: 200 mg Pregabalin (Lyrica) 200 mg PO TID@0800,1400,2200 [facility] Last Admin: 04/11/18 08:08 Dose: 200 mg Promethazine HCl (Phenergan) 25 mg PO Q6H PRN PRN Reason: nausea, able to take PO Senna/Docusate Sodium (Senna Plus) 2 tab PO BID [facility] Last Admin: 04/11/18 08:09 Dose: 2 tab Sodium Chloride (Saline Flush) 10 ml FLUSH ASDIRECTED PRN PRN Reason: Keep Vein Open Last Admin: 04/10/18 19:39 Dose: 10 ml - Exam General: Reports: Alert, Oriented, Cooperative, No Acute Distress HEENT: Reports: Pupils Equal, Pupils Reactive Neck: Reports: Supple, Trachea Midline, No JVD Lungs: Reports: Clear to Auscultation, Normal Respiratory Effort Cardiovascular: Reports: Regular Rate, Regular Rhythm, No Murmurs Extremities: Other (left foot drop) Skin: Reports: Warm, Dry, Intact, Rash Neurological: Reports: Normal Speech Psy/Mental Status: Reports: Alert, Normal Affect
[2018-04-11] MEDS ORDERED: Cefuroxime 250 MG Tab PO SCH (20:00)
== END 2018-04-11 10:28 | disposition home or self-care (01) | DRG 871 ==
LOC: VM.ED 20:11 → VM.MS 22:58
PROVIDERS: ADMIT Internal Medicine; ATTEND Family Medicine
DX: A41.9 Sepsis, unspecified organism (principal); N39.0 Urinary tract infection, site not specified; L53.9 Erythematous condition, unspecified; J18.9 Pneumonia, unspecified organism; R06.02 Shortness of breath; L03.116 Cellulitis of left lower limb; M54.9 Dorsalgia, unspecified; G89.29 Other chronic pain; M54.16 Radiculopathy, lumbar region; L40.9 Psoriasis, unspecified; Z79.82 Long term (current) use of aspirin; M21.372 Foot drop, left foot; F32.9 Major depressive disorder, single episode, unspecified; E78.5 Hyperlipidemia, unspecified; I10 Essential (primary) hypertension; F39 Unspecified mood [affective] disorder; F41.9 Anxiety disorder, unspecified; F17.210 Nicotine dependence, cigarettes, uncomplicated; Z79.891 Long term (current) use of opiate analgesic; Z79.899 Other long term (current) drug therapy; Z88.0 Allergy status to penicillin; Z98.890 Other specified postprocedural states
CPT/HCPCS: 36415; 71045; 71260; 80053; 81001; 83605; 83735; 83880; 84100; 84443; 84484; 85025; 85610; 86140; 87040 ×2; 93005; 96361; 96374; 96375; 99284; 99285; J0696; J1170; J2060; J7030; Q9967; 80048; 87804; 87804-59; 94640; A9270-GY; J0456; J1650; J7050; J7620-GY

== ENCOUNTER 2019-03-19 17:23 | Emergency (ER) | payer MEDICARE, OTHER ==
--- NOTE | 2019-03-19 17:35 | EDM.PDOC ---
ED HPI GENERAL MEDICAL PROBLEM - General Chief Complaint: Gastrointestinal Problem Stated Complaint: ABDOMINAL PAIN Time Seen by Provider: 03/19/19 17:35 Source of Information: Reports: Patient, Family History Limitations: Reports: No Limitations - History of Present Illness INITIAL COMMENTS - FREE TEXT/NARRATIVE: Patient presents to the ED with complaints of mid epigastric pain. This pain started 2-3 days ago and has worsened significantly today. States the pain is sharp and stabbing and causes his lower back to hurt. This in turn has caused him to have back and leg spasms. He has history of alcohol use; 1-2 drinks per day, smokes 1 ppd for 35 years. Denies any prior incidents. He is sweaty when arriving and having a difficult time walking due to bending over from the pain. He refused to sit in a wheelchair stating that made the pain worse. He denies chest pain. Denies shortness of breath. He is breathing very shallow and is also holding his breath to help with the pain. He denies any emesis, but is nauseated. Has no extremity weakness or pain. Has not been ill over the last 7-10 days. Denies any respiratory infections or cough. No recent travel. Onset: Gradual Duration: Getting Worse Location: Reports: Abdomen Quality: Reports: Sharp Severity: Severe Improves with: Reports: Medication Worsens with: Reports: None Associated Symptoms: Reports: Nausea/Vomiting Epigastric Pain Score (Numeric/FACES): 10 - Related Data Allergies Allergy/AdvReac Type Severity Reaction Status Date / Time Penicillins Allergy Severe Anaphylactic Verified 03/19/19 19:35 Shock venom-honey bee Allergy Severe Anaphylactic Verified 03/19/19 19:35 [bee venom (honey bee)] Shock Home Meds: Home Meds Aspirin [Ecotrin] 325 mg PO DAILY 09/12/13 [History] Cyclobenzaprine [Flexeril] 10 mg PO TID PRN 09/12/13 [History] Diazepam [Valium] 2 mg PO TID PRN 09/12/13 [History] Ibuprofen [Advil Migraine] 600 mg PO BID 09/12/13 [History] hydrOXYzine pamoate [Vistaril] 50 mg PO QID PRN 09/12/13 [History] Docusate Sodium/Sennosides [Senna Plus] 2 tab PO BID 09/09/15 [History] Magnesium Oxide/Mag AA Chelate [Magnesium] 300 mg PO BID 09/09/15 [History] Ranitidine HCl [Zantac] 75 mg PO BID PRN 09/09/15 [History] EPINEPHrine [Epipen] 0.3 mg IM ASDIRECTED PRN 04/08/18 [History] Pregabalin [Lyrica] 200 mg PO TID 04/09/18 [History] Albuterol/Ipratropium [DuoNeb 3.0-0.5 MG/3 ML] 3 ml NEB Q4HRRT PRN #30 neb 04/11 [Rx] Nicotine [Habitrol] 14 mg TRDERM DAILY #30 patch 04/11/18 [Rx] oxyCODONE HCl [Oxycodone HCl] 10 mg PO Q6H PRN #0 04/11/18 [Rx] Famotidine [Pepcid] 20 mg PO DAILY 07/12/18 [History] oxyCODONE HCl [Oxycontin] 40 mg PO TID 07/12/18 [History] Past Medical History Cardiovascular History: Reports: High Cholesterol, Hypertension Musculoskeletal History: Reports: Back Pain, Chronic Other Musculoskeletal History: Lumbar Herniated Disc Neurological History: Reports: None Psychiatric History: Reports: Depression Endocrine/Metabolic History: Reports: None Dermatologic History: Reports: Psoriasis Other Dermatologic History: knees, back of ears, feet - Past Surgical History Neurological Surgical History: Reports: Other (See Below) Other Neurological Surgeries/Procedures: spine surgery Musculoskeletal Surgical History: Reports: Other (See Below) 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 Social & Family History - Family History Family Medical History: Noncontributory Other Dermatologic Family History: Adopted - Caffeine Use Caffeine Use: Reports: Soda ED ROS GENERAL - Review of Systems Review Of Systems: See Below Constitutional: Reports: No Symptoms HEENT: Reports: No Symptoms Respiratory: Reports: No Symptoms Cardiovascular: Reports: No Symptoms Endocrine: Reports: No Symptoms GI/Abdominal: Reports: Abdominal Pain : Reports: No Symptoms Musculoskeletal: Reports: Back Pain, Leg Pain, Other (spasms to back and legs) Skin: Reports: Diaphoresis Psychiatric: Reports: Anxiety Hematologic/Lymphatic: Reports: No Symptoms Immunologic: Reports: No Symptoms ED EXAM, GI/ABD - Physical Exam Exam: See Below Exam Limited By: No Limitations General Appearance: Alert, WD/WN, Moderate Distress Eyes: Bilateral: Normal Appearance, EOMI Ears: Normal TMs Nose: Normal Inspection, Normal Mucosa, No Blood Throat/Mouth: Normal Inspection, Normal Lips, Normal Teeth, Normal Gums, Normal Oropharynx, Normal Voice, No Airway Compromise Head: Atraumatic, Normocephalic Neck: Normal Inspection, Supple, Non-Tender, Full Range of Motion Respiratory/Chest: No Respiratory Distress, Lungs Clear, Normal Breath Sounds, No Accessory Muscle Use, Chest Non-Tender Cardiovascular: Normal Peripheral Pulses, Regular Rate, Rhythm, No Edema, No Gallop, No JVD, No Murmur, No Rub GI/Abdominal Exam: Soft, No Distention, Guarding, Tender Back Exam: Normal Inspection, Full Range of Motion, NT Extremities: Normal Inspection, Normal Range of Motion, Non-Tender, Normal Capillary Refill, No Pedal Edema Neurological: Alert, Oriented, CN II-XII Intact, Normal Cognition, Normal Gait, Normal Reflexes, No Motor/Sensory Deficits Psychiatric: Anxious Skin Exam: Diaphoretic Lymphatic: No Adenopathy Course - Vital Signs Last Recorded V/S: Last Vital Signs Temp 38.1 C 03/19/19 17:25 Pulse 124 H 03/19/19 18:00 Resp 24 H 03/19/19 17:25 BP 176/108 H 03/19/19 18:00 Pulse Ox 95 03/19/19 17:25 - Orders/Labs/Meds Orders: Active Orders 24 hr Category Date Time Status EKG Documentation Completion [RC] STAT Care 03/19/19 17:40 Ordered CULTURE BLOOD [BC] Stat Lab 03/19/19 18:36 Ordered CULTURE BLOOD [BC] Stat Lab 03/19/19 18:36 Ordered UA W/MICROSCOPIC [URIN] Stat Lab 03/19/19 17:41 Ordered Sodium Chloride 0.9% [Saline Flush] Med 03/19/19 17:40 Ordered 10 ml FLUSH ASDIRECTED PRN Blood Culture x2 Reflex Set [OM.PC] Stat Oth 03/19/19 18:36 Ordered Saline Lock Insert [OM.PC] Routine Oth 03/19/19 17:40 Ordered Medication Orders Sodium Chloride (Saline Flush) 10 ml FLUSH ASDIRECTED PRN PRN Reason: Keep Vein Open Labs: Laboratory Tests 03/19/19 03/19/19 03/19/19 Range/Units 17:45 17:45 17:45 WBC 16.7 H (4.0-10.0) x10^3/uL RBC 4.62 (4.5-6.0) x10^6/uL Hgb 13.9 L D (14.0-18.0) g/dL Hct 40.5 (40.0-52.0) % MCV 87.7 (78.0-93.0) fL MCH 30.1 (26.0-32.0) pg MCHC 34.3 (32.0-36.0) g/dL RDW Coeff of Seth 15.2 H (10.0-15.0) % Plt Count 329 (130-400) x10^3/uL Add Manual Diff Yes Neutrophils % (Manual) 69 (50-80) % Band Neutrophils % 1 (0-6) % Lymphocytes % (Manual) 23 L (25-50) % Monocytes % (Manual) 6 (2-11) % Metamyelocytes % 1 H (0) % Platelet Estimate Adequate Anisocytosis 1+ slight H D-Dimer, Quantitative (<=0.58) mg/LFEU Sodium 137 (136-145) mmol/L Potassium 3.5 (3.5-5.1) mmol/L Chloride 100 (98-107) mmol/L Carbon Dioxide 21 (21-32) mmol/L Anion Gap 19.5 (10-20) mmol/L BUN 13 (7-18) mg/dL Creatinine 1.3 (0.70-1.30) mg/dL Est Cr Clr Drug Dosing TNP Estimated GFR (MDRD) 58 Glucose 113 H (74-106) mg/dL Lactic Acid 2.6 H* (0.4-2.0) mmol/L Calcium 9.0 (8.5-10.1) mg/dL Corrected Calcium 9.08 (8.5-10.1) mg/dL Magnesium 1.8 (1.8-2.4) mg/dL Total Bilirubin 0.5 (0.2-1.0) mg/dL AST 36 (15-37) U/L ALT 63 (16-63) U/L Alkaline Phosphatase 124 H (46-116) U/L Creatine Kinase 268 (39-308) U/L Troponin I 0.018 (<=0.056) ng/mL C-Reactive Protein 7.3 H (<=0.9) mg/dL Total Protein 8.2 (6.4-8.2) g/dL Albumin 3.9 (3.4-5.0) g/dL Globulin 4.3 Albumin/Globulin Ratio 0.91 Triglycerides 187 H (0-149) mg/dL Amylase (25-115) U/L Lipase (73-393) U/L Ethyl Alcohol < 3 (0-3) mg/dL 03/19/19 03/19/19 Range/Units 17:45 17:45 WBC (4.0-10.0) x10^3/uL RBC (4.5-6.0) x10^6/uL Hgb (14.0-18.0) g/dL Hct (40.0-52.0) % MCV (78.0-93.0) fL MCH (26.0-32.0) pg MCHC (32.0-36.0) g/dL RDW Coeff of Seth (10.0-15.0) % Plt Count (130-400) x10^3/uL Add Manual Diff Neutrophils % (Manual) (50-80) % Band Neutrophils % (0-6) % Lymphocytes % (Manual) (25-50) % Monocytes % (Manual) (2-11) % Metamyelocytes % (0) % Platelet Estimate Anisocytosis D-Dimer, Quantitative 0.48 (<=0.58) mg/LFEU Sodium (136-145) mmol/L Potassium (3.5-5.1) mmol/L Chloride (98-107) mmol/L Carbon Dioxide (21-32) mmol/L Anion Gap (10-20) mmol/L BUN (7-18) mg/dL Creatinine (0.70-1.30) mg/dL Est Cr Clr Drug Dosing Estimated GFR (MDRD) Glucose (74-106) mg/dL Lactic Acid (0.4-2.0) mmol/L Calcium (8.5-10.1) mg/dL Corrected Calcium (8.5-10.1) mg/dL Magnesium (1.8-2.4) mg/dL Total Bilirubin (0.2-1.0) mg/dL AST (15-37) U/L ALT (16-63) U/L Alkaline Phosphatase (46-116) U/L Creatine Kinase (39-308) U/L Troponin I (<=0.056) ng/mL C-Reactive Protein (<=0.9) mg/dL Total Protein (6.4-8.2) g/dL Albumin (3.4-5.0) g/dL Globulin Albumin/Globulin Ratio Triglycerides (0-149) mg/dL Amylase 37 (25-115) U/L Lipase 185 (73-393) U/L Ethyl Alcohol (0-3) mg/dL Meds: Medications Generic Name Dose Route Start Last Admin Trade Name Freq PRN Reason Stop Dose Admin Sodium Chloride 10 ml 03/19/19 17:40 Saline Flush FLUSH ASDIRECTED PRN Keep Vein Open Discontinued Medications Generic Name Dose Route Start Last Admin Trade Name Freq PRN Reason Stop Dose Admin Al Hydroxide/Mg Hydroxide 30 ml 03/19/19 19:56 03/19/19 19:55 Gi Cocktail PO 03/19/19 19:57 30 ml ONETIME ONE Administration Ceftriaxone Sodium 1 gm 03/19/19 18:30 03/19/19 18:55 Rocephin IVPUSH 03/19/19 18:31 1 gm STAT ONE Administration Diazepam 5 mg 03/19/19 17:54 03/19/19 18:00 Valium IVPUSH 03/19/19 17:55 5 mg STAT ONE Administration Diazepam 5 mg 03/19/19 19:00 03/19/19 19:05 Valium IVPUSH 03/19/19 19:01 5 mg STAT ONE Administration Hydromorphone HCl 1 mg 03/19/19 19:52 Dilaudid IVPUSH 03/19/19 19:53 ONETIME ONE Sodium Chloride 1,000 mls @ 999 mls/hr 03/19/19 17:47 03/19/19 17:50 Normal Saline IV 03/19/19 18:47 999 mls/hr ONETIME ONE Administration Iopamidol 100 ml 03/19/19 18:32 03/19/19 18:50 Isovue-300 (61%) IVPUSH 03/19/19 18:33 100 ml ONETIME ONE Administration Ondansetron HCl 4 mg 03/19/19 19:50 03/19/19 19:55 Zofran IVPUSH 03/19/19 19:51 4 mg ONETIME ONE Administration - Radiology Interpretation Free Text/Narrative:: CT abdomen/pelvis with contrast shows 12 x 11 x 9 mm hypodense mass in uncinate process of the pancreas, 12 x 9 x 8 mm hypodense lesion in medial left hepatic lobe Departure - Departure Time of Disposition: 21:00 Disposition: DC/Tfer to Acute Hospital 02 Condition: Fair Clinical Impression: Sepsis, Abdominal pain - Discharge Information *PRESCRIPTION DRUG MONITORING PROGRAM REVIEWED*: No *COPY OF PRESCRIPTION DRUG MONITORING REPORT IN PATIENT ORI: No Referrals: Jay Jay Whalen MD [Primary Care Provider] - Forms: ED Department Discharge, Interfacility Transfer [facility] ED Communication - ED Communication Date/Time Date: 03/19/19 Time Called: 19:45 - Discussed Case With (1) Discussed Case With (1): Admitting Provider (Dr. Ramirez with hospitalist services from [place] given report and will accept patient.) - Problem List & Annotations (1) Sepsis SNOMED Code(s): 25971850 Code(s): A41.9 - SEPSIS, UNSPECIFIED ORGANISM Status: Acute Priority: High Current Visit: Yes Qualifiers: Sepsis type: sepsis due to unspecified organism Qualified Code(s): A41.9 - Sepsis, unspecified organism - My Orders Last 24 Hours: My Active Orders 03/19/19 17:40 EKG Documentation Completion [RC] STAT Sodium Chloride 0.9% [Saline Flush] 10 ml FLUSH ASDIRECTED PRN Saline Lock Insert [OM.PC] Routine 03/19/19 17:41 UA W/MICROSCOPIC [URIN] Stat 03/19/19 18:36 CULTURE BLOOD [BC] Stat CULTURE BLOOD [BC] Stat Blood Culture x2 Reflex Set [OM.PC] Stat - Assessment/Plan Last 24 Hours: My Active Orders 03/19/19 17:40 EKG Documentation Completion [RC] STAT Sodium Chloride 0.9% [Saline Flush] 10 ml FLUSH ASDIRECTED PRN Saline Lock Insert [OM.PC] Routine 03/19/19 17:41 UA W/MICROSCOPIC [URIN] Stat 03/19/19 18:36 CULTURE BLOOD [BC] Stat CULTURE BLOOD [BC] Stat Blood Culture x2 Reflex Set [OM.PC] Stat
[2019-03-19] MEDS ORDERED: Sodium Chloride 0.9% 10 ML Syringe FLUSH PRN (17:40)
[2019-03-19] MEDS ORDERED: Sodium Chloride 0.9% 1,000 ML IV ONE (17:47)
[2019-03-19 18:25] LABS: CHLORIDE,CL 100 mmol/L (98-107); SODIUM,NA 137 mmol/L (136-145)
[2019-03-19 18:26] LABS: ANION GAP 19.5 mmol/L (10-20)
[2019-03-19] MEDS ORDERED: cefTRIAXone 1 GM Vial IVPUSH ONE (18:30)
[2019-03-19] MEDS ORDERED: Iopamidol 612 MG/ML 100 ML Bottle IVPUSH ONE (18:32)
--- NOTE | 2019-03-19 19:28 | CT ---
[id number] CT/CT Abdomen Pelvis W IV EXAM: CT Abdomen Pelvis W IV CLINICAL DATA: ABDOMINAL PAIN. COMPARISON STUDY: December 2017. FINDINGS: Hepatomegaly and moderate to advanced diffuse steatosis. Correlate with LFTs. 12 x 9 x 8 mm well-defined hypodense lesion in the medial left hepatic lobe (series 2 image 20). This was seen on prior examination from December 2017. Finding is most consistent with a small cyst. 12 x 11 x 9 mm hypodense mass in the uncinate process of the pancreas (series 2 image 48 and series 3 image 45). Finding was not seen on the prior examination. There is suggestion of mild mesenteric edema/fat stranding adjacent to this area of the pancreas. Pancreas is otherwise unremarkable. Simple cortical cyst arising from the right kidney. Kidneys are otherwise unremarkable. No evidence of urinary tract obstruction. No bowel obstruction or inflammation. Appendix is normal. Postsurgical change from fusion at L3-S1. Advanced L2-3 spondylosis. IMPRESSION: 12 mm hypodense mass in the head/uncinate process of the pancreas with possible peripancreatic fat stranding/edema. Findings are nonspecific. Differential diagnosis includes small pseudocyst the setting of acute pancreatitis. Correlate with amylase and lipase. Otherwise, findings could represent a pancreas neoplasm, including both benign and malignant entities. MRI of the abdomen with and without contrast would be of benefit to better evaluate these findings, as clinically warranted. Hepatomegaly and diffuse steatosis. Scot Dockery MD 03/19/19 1927 Thank you for allowing us to participate in the care of your patient.
[2019-03-19] MEDS ORDERED: Ondansetron 4 MG/2 ML SDV IVPUSH ONE (19:50)
[2019-03-19] MEDS ORDERED: HYDROmorphone 1 MG/ML Syringe IVPUSH ONE (19:52)
[2019-03-19] MEDS ORDERED: GI Cocktail Oral Solution 30 ML PO ONE (19:56)
[2019-03-20 05:27] VITALS: BP 158/100; PULSE 115
== END 2019-03-19 20:40 | disposition short-term general hospital (02) ==
LOC: VM.ED 17:23
DX: A41.9 Sepsis, unspecified organism (principal); R10.13 Epigastric pain; I10 Essential (primary) hypertension; F32.9 Major depressive disorder, single episode, unspecified; Z88.0 Allergy status to penicillin; Z91.030 Bee allergy status; Z79.82 Long term (current) use of aspirin; Z79.899 Other long term (current) drug therapy
CPT/HCPCS: 36415; 74177; 80053; 82150; 82550; 83605; 83690; 83735; 84478; 84484; 85025; 85379; 86140; 87040; 93005; 96361; 96374; 96375; 96376; 99285; A9270; G0480; J0696; J2405; J3360; J7030; Q9967; 99284-GF

== ENCOUNTER 2019-09-02 21:11 | Emergency (ER) | payer OTHER, MEDICARE ==
[2019-09-02] MEDS ORDERED: HYDROmorphone 1 MG/ML Syringe SUBCUT ONE (21:43)
--- NOTE | 2019-09-03 01:35 | EDM.PDOC ---
ED HPI GENERAL MEDICAL PROBLEM - General Chief Complaint: Back Pain or Injury Stated Complaint: Back spasms, chronic back pain Time Seen by Provider: 09/02/19 21:15 Source of Information: Reports: Patient History Limitations: Reports: No Limitations - History of Present Illness INITIAL COMMENTS - FREE TEXT/NARRATIVE: Pt. presents to ER with complaints of low back pain. Pt. has a history of chronic low back pain and takes oxycodone, oxycontin, and valium for this, as well as cyclobenzaprine. He states that he has recently taken a valium 2 mg PO and cyclobenzaprine 10mg PO in addition to his opiate pain medication, but cannot get the pain under control. Denies any recent trauma. He states that the symptoms started this afternoon without any trauma or provocation. Denies any numbness/tingling in extremities. No saddle anesthesia/incontinence. 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, po, Flexeril 30mg po today, Oxycotin 40mg about 2 hours ago mid thoacic back, bilateral Pain Score (Numeric/FACES): 10 - Related Data Allergies Allergy/AdvReac Type Severity Reaction Status Date / Time Penicillins Allergy Severe Anaphylactic Verified 09/02/19 21:47 Shock venom-honey bee Allergy Severe Anaphylactic Verified 09/02/19 21:47 [bee venom (honey bee)] Shock Home Meds: Home Meds Aspirin [Ecotrin] 325 mg PO DAILY 09/12/13 [History] Cyclobenzaprine [Flexeril] 10 mg PO TID PRN 09/12/13 [History] Diazepam [Valium] 2 mg PO TID PRN 09/12/13 [History] Ibuprofen [Advil Migraine] 600 mg PO BID 09/12/13 [History] hydrOXYzine pamoate [Vistaril] 50 mg PO QID PRN 09/12/13 [History] Docusate Sodium/Sennosides [Senna Plus] 2 tab PO BID 09/09/15 [History] Magnesium Oxide/Mag AA Chelate [Magnesium] 300 mg PO BID 09/09/15 [History] Ranitidine HCl [Zantac] 75 mg PO BID PRN 09/09/15 [History] EPINEPHrine [Epipen] 0.3 mg IM ASDIRECTED PRN 04/08/18 [History] Pregabalin [Lyrica] 200 mg PO TID 04/09/18 [History] Albuterol/Ipratropium [DuoNeb 3.0-0.5 MG/3 ML] 3 ml NEB Q4HRRT PRN #30 neb 04/11 [Rx] Nicotine [Habitrol] 14 mg TRDERM DAILY #30 patch 04/11/18 [Rx] oxyCODONE HCl [Oxycodone HCl] 10 mg PO Q6H PRN #0 04/11/18 [Rx] Famotidine [Pepcid] 20 mg PO DAILY 07/12/18 [History] oxyCODONE HCl [Oxycontin] 40 mg PO TID 07/12/18 [History] Past Medical History Cardiovascular History: Reports: High Cholesterol, Hypertension Musculoskeletal History: Reports: Back Pain, Chronic Other Musculoskeletal History: Lumbar Herniated Disc Neurological History: Reports: None Psychiatric History: Reports: Depression Endocrine/Metabolic History: Reports: None Dermatologic History: Reports: Psoriasis Other Dermatologic History: knees, back of ears, feet - Past Surgical History Neurological Surgical History: Reports: Other (See Below) Other Neurological Surgeries/Procedures: spine surgery Musculoskeletal Surgical History: Reports: Other (See Below) 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 Denies: Fever, Chills HEENT: Reports: No Symptoms Respiratory: Reports: No Symptoms Cardiovascular: Reports: No Symptoms Endocrine: Reports: No Symptoms GI/Abdominal: Reports: No Symptoms : Reports: No Symptoms Musculoskeletal: Reports: Back Pain Skin: Reports: No Symptoms Neurological: Reports: No Symptoms. Denies: Paresthesia, Tingling Psychiatric: Reports: No Symptoms Hematologic/Lymphatic: Reports: No Symptoms Immunologic: Reports: No Symptoms ED EXAM, GENERAL - Physical Exam Exam: See Below Exam Limited By: No Limitations General Appearance: Alert, WD/WN, No Apparent Distress Back Exam: Normal Inspection, Decreased Range of Motion, Muscle Spasm Extremities: Normal Inspection, Normal Range of Motion, Non-Tender, No Pedal Edema, Normal Capillary Refill Neurological: Alert, Oriented, CN II-XII Intact, Normal Cognition, Normal Gait, Normal Reflexes, No Motor/Sensory Deficits Course - Vital Signs Last Recorded V/S: Last Vital Signs Temp 36.9 C 09/02/19 21:15 Pulse 120 H 09/02/19 21:15 Resp 20 09/02/19 21:15 BP 158/109 H 09/02/19 21:15 Pulse Ox 94 L 09/02/19 21:15 - Orders/Labs/Meds Meds: Medications Discontinued Medications Generic Name Dose Route Start Last Admin Trade Name Gwen PRN Reason Stop Dose Admin Diazepam 10 mg 09/02/19 21:43 09/02/19 22:05 Valium IM 09/02/19 21:44 10 mg ONETIME ONE Administration Hydromorphone HCl 1 mg 09/02/19 21:43 09/02/19 22:05 Dilaudid SUBCUT 09/02/19 21:44 1 mg ONETIME ONE Administration Departure - Departure Time of Disposition: 22:30 Disposition: Home, Self-Care 01 Clinical Impression: Low back pain - Discharge Information Instructions: Chronic Back Pain Referrals: Jay Jay Whalen MD [Primary Care Provider] - Forms: ED Department Discharge Additional Instructions: Home to rest. Continue with your current medications at home. Follow-up in clinic in 7-10 days, sooner if not gradually improving. Sepsis Event Note - Evaluation Sepsis Screening Result: No Definite Risk - Focused Exam Vital Signs: Vital Signs Temp Pulse Resp BP Pulse Ox 09/02/19 21:15 36.9 C 120 H 20 158/109 H 94 L Date Exam was Performed: 09/03/19 Time Exam was Performed: 01:36 - Assessment/Plan Plan: Home to rest. Continue with your current medications at home. Follow-up in clinic in 7-10 days, sooner if not gradually improving.
[2019-09-03 03:45] VITALS: BP 132/100; PULSE 104
== END 2019-09-02 22:30 | disposition home or self-care (01) ==
LOC: VM.ED 21:11
DX: M54.5 Low back pain (principal); I10 Essential (primary) hypertension; E78.00 Pure hypercholesterolemia, unspecified; F32.9 Major depressive disorder, single episode, unspecified; Z79.899 Other long term (current) drug therapy; Z79.82 Long term (current) use of aspirin; Z91.030 Bee allergy status; Z88.0 Allergy status to penicillin
CPT/HCPCS: 96372; 99283; J1170; J3360

== ENCOUNTER 2020-08-25 19:33 | Emergency (ER) | payer MEDICARE, OTHER ==
[2020-08-25] MEDS: Sodium Chloride 0.9% 1,000 ML IV SCH (19:51)
[2020-08-25] MEDS: HYDROmorphone 1 MG/ML Syringe IVPUSH ONE ×2 (19:55→21:22)
[2020-08-25] MEDS: Sodium Chloride 0.9% 10 ML Syringe FLUSH PRN (19:55)
[2020-08-25] MEDS: Ondansetron 4 MG/2 ML SDV IVPUSH ONE (19:55)
--- NOTE | 2020-08-25 19:57 | EDM.PDOC ---
ED HPI GENERAL MEDICAL PROBLEM - General Chief Complaint: General Stated Complaint: CAN'T KEEP ANYTHING DOWN Time Seen by Provider: 08/25/20 19:35 Source of Information: Reports: Patient History Limitations: Reports: No Limitations - History of Present Illness INITIAL COMMENTS - FREE TEXT/NARRATIVE: Pt. presents to ER with complaints of severe abdominal pain that started early this AM while the patient was asleep. Pt. states that the discomfort has gotten worse through the day. He states that he has been vomiting and is unable to hold down any fluids. He states that he tried to take his AM medications but vomited after swallowing. He has a history of alcoholism and also feels he is going through alcohol withdrawal. He is also on oral oxycodone and valium as well and has been unable to hold these down, either. Pt. has his gallbladder and appendix. His only abdominal surgery was an anterior approach in the L abdomen for spinal surgery. Pt. denies any fever or chills. No chest pain or shortness of breath. Denies any sore throat, rhinorrhea or congestion. Denies any dysuria. Pt. states that his last BM was on Saturday, and that he has a history of constipation due to opiate use. He also has a history of alcoholic gastritis as well. Onset: Today Location: Reports: Abdomen Quality: Reports: Pressure, Stabbing, Throbbing Severity: Severe Associated Symptoms: Reports: Loss of Appetite, Nausea/Vomiting, Rash (history of psoriasis). Denies: Confusion, Chest Pain, Cough, Diaphoresis, Fever/Chills, Malaise, Seizure, Shortness of Breath, Syncope, Weakness Upper Abdomen Pain Score (Numeric/FACES): 10 - Related Data Allergies Allergy/AdvReac Type Severity Reaction Status Date / Time Penicillins Allergy Severe Anaphylactic Verified 08/25/20 20:18 Shock venom-honey bee Allergy Severe Anaphylactic Verified 08/25/20 20:18 [bee venom (honey bee)] Shock Home Meds: Home Meds Cyclobenzaprine [Flexeril] 10 mg PO TID PRN 09/12/13 [History] diazePAM [Valium] 2 mg PO TID PRN 09/12/13 [History] hydrOXYzine pamoate [Vistaril] 50 mg PO QID PRN 09/12/13 [History] Docusate Sodium/Sennosides [Senna Plus] 2 tab PO BID 09/09/15 [History] EPINEPHrine [Epipen] 0.3 mg IM ASDIRECTED PRN 04/08/18 [History] Pregabalin [Lyrica] 200 mg PO TID 04/09/18 [History] Acetaminophen 650 mg PO Q6H 08/25/20 [History] Albuterol Sulfate [Albuterol Sulfate Hfa] 1 puff IH Q4H PRN 08/25/20 [History] Albuterol/Ipratropium [DuoNeb 3.0-0.5 MG/3 ML] 3 ml INH Q4H PRN 08/25/20 [History] Aspirin [Aspirin EC] 81 mg PO DAILY 08/25/20 [History] Clobetasol [Clobetasol Propionate 0.05%] 30 gm TOP BID 08/25/20 [History] Cyanocobalamin (Vitamin B-12) [Vitamin B-12] 250 mcg PO DAILY 08/25/20 [History] Furosemide 20 mg PO DAILY 08/25/20 [History] Hydrocortisone [Hydrocortisone 2.5% Crm] 30 gm TOP ASDIRECTED 08/25/20 [History] Polyethylene Glycol [Polyox Wsr-301] 1 gm MC ASDIRECTED 08/25/20 [History] Sertraline [Zoloft] 50 mg PO DAILY 08/25/20 [History] carvediloL [Coreg] 6.25 mg PO BID 08/25/20 [History] oxyCODONE ER [OxyCONTIN] 20 mg PO TID 08/25/20 [History] oxyCODONE HCl [Oxycodone HCL] 10 mg PO BID 08/25/20 [History] Past Medical History Cardiovascular History: Reports: High Cholesterol, Hypertension Musculoskeletal History: Reports: Back Pain, Chronic Other Musculoskeletal History: Lumbar Herniated Disc Neurological History: Reports: None Psychiatric History: Reports: Depression Endocrine/Metabolic History: Reports: None Dermatologic History: Reports: Psoriasis Other Dermatologic History: knees, back of ears, feet - Past Surgical History Neurological Surgical History: Reports: Other (See Below) Other Neurological Surgeries/Procedures: spine surgery Musculoskeletal Surgical History: Reports: Other (See Below) 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 Denies: Black Stool, Bloody Stool, Diarrhea, Difficulty Swallowing, Hematemesis, Hematochezia, Melena, Mucous in Stool, Stool Incontinence : Reports: No Symptoms Musculoskeletal: Reports: No Symptoms Skin: Reports: No Symptoms Neurological: Reports: No Symptoms Psychiatric: Reports: No Symptoms Hematologic/Lymphatic: Reports: No Symptoms Immunologic: Reports: No Symptoms ED EXAM, GENERAL - Physical Exam Exam: See Below Exam Limited By: No Limitations General Appearance: Alert, WD/WN, No Apparent Distress Eye Exam: Bilateral Eye: EOMI, Normal Inspection, PERRL Nose: Normal Inspection, No Blood Throat/Mouth: Normal Inspection, Normal Lips, Normal Oropharynx, Normal Voice, No Airway Compromise Head: Atraumatic, Normocephalic Neck: Normal Inspection, Supple, Non-Tender, Full Range of Motion Respiratory/Chest: No Respiratory Distress, Lungs Clear, Normal Breath Sounds, No Accessory Muscle Use, Chest Non-Tender Cardiovascular: Normal Peripheral Pulses, Regular Rate, Rhythm, No Edema, No JVD, No Murmur Peripheral Pulses: 4+: Radial (R) GI/Abdominal: Distended, Guarding, Tender, Hepatomegaly (Male) Exam: Deferred Rectal (Males) Exam: Deferred Extremities: Normal Inspection, Normal Range of Motion, Non-Tender, No Pedal Edema, Normal Capillary Refill Neurological: Alert, Oriented, CN II-XII Intact, Normal Cognition, Normal Gait, Normal Reflexes, No Motor/Sensory Deficits Psychiatric: Normal Affect, Normal Mood Skin Exam: Warm, Dry, Intact, Normal Color, No Rash #1 Interpretation Rhythm: NSR Protection: Normal P-Wave: Present QRS: Normal ST-T: Normal QT: Normal Course - Vital Signs Last Recorded V/S: Last Vital Signs Temp 36.8 C 08/25/20 19:37 Pulse 124 H 08/25/20 19:37 Resp 24 H 08/25/20 19:37 BP 166/112 H 08/25/20 19:51 Pulse Ox 100 08/25/20 19:37 - Orders/Labs/Meds Orders: Active Orders 24 hr Category Date Time Status EKG Documentation Completion [RC] STAT Care 08/25/20 19:40 Active Abdomen Pelvis w Cont [CT] Stat Exams 08/25/20 19:57 Ordered AMYLASE [CHEM] Stat Lab 08/25/20 19:38 Ordered Blood Alcohol [ETHANOL BLOOD MEDICAL] [CHEM] Stat Lab 08/25/20 19:38 Ordered COMPREHENSIVE METABOLIC PN,CMP [CHEM] Stat Lab 08/25/20 19:38 Ordered CRP [C-REACTIVE PROTEIN] [CHEM] Stat Lab 08/25/20 19:38 Ordered DRUG SCREEN, URINE [URCHEM] Stat Lab 08/25/20 19:38 Ordered LIPASE [CHEM] Stat Lab 08/25/20 19:38 Ordered MAGNESIUM [CHEM] Stat Lab 08/25/20 19:38 Ordered TROPONIN I [CHEM] Stat Lab 08/25/20 19:38 Ordered UA RFX ELKE AND CULT IF INDIC [URIN] Stat Lab 08/25/20 19:38 Ordered Sodium Chloride 0.9% [Normal Saline] 1,000 ml Med 08/25/20 19:45 Active IV ASDIRECTED Sodium Chloride 0.9% [Saline Flush] Med 08/25/20 19:38 Active 10 ml FLUSH ASDIRECTED PRN Peripheral IV Insertion Adult [OM.PC] Routine Oth 08/25/20 19:38 Ordered Medication Orders Sodium Chloride (Normal Saline) 1,000 mls @ 1,000 mls/hr IV ASDIRECTED GLORIA Last Admin: 08/25/20 19:51 Dose: 1,000 mls/hr Documented by: Sodium Chloride (Saline Flush) 10 ml FLUSH ASDIRECTED PRN PRN Reason: Keep Vein Open Last Admin: 08/25/20 19:55 Dose: 10 ml Documented by: Labs: Laboratory Tests 08/25/20 08/25/20 Range/Units 19:45 19:45 WBC 9.2 (4.0-10.0) x10^3/uL RBC 4.31 L (4.5-6.0) x10^6/uL Hgb 12.0 L D (14.0-18.0) g/dL Hct 35.2 L (40.0-52.0) % MCV 81.7 D (78.0-93.0) fL MCH 27.8 (26.0-32.0) pg MCHC 34.1 (32.0-36.0) g/dL RDW Coeff of Seth 18.0 H (10.0-15.0) % Plt Count 255 (130-400) x10^3/uL Neut % (Auto) 80.3 H (50.0-80.0) % Lymph % (Auto) 11.4 L (25.0-50.0) % Collier % (Auto) 7.0 (2.0-11.0) % Eos % (Auto) 0.4 (0.0-4.0) % Baso % (Auto) 0.9 (0.2-1.2) % PT 10.2 (9.5-12.3) SEC INR 0.9 L (2.0-3.5) APTT 25.6 (25.6-32.8) SEC Meds: Medications Generic Name Dose Route Start Last Admin Trade Name Freq PRN Reason Stop Dose Admin Sodium Chloride 1,000 mls @ 1,000 mls/hr 08/25/20 19:45 08/25/20 19:51 Normal Saline IV 1,000 mls/hr ASDIRECTED GLORIA Administration Sodium Chloride 10 ml 08/25/20 19:38 08/25/20 19:55 Saline Flush FLUSH 10 ml ASDIRECTED PRN Administration Keep Vein Open Discontinued Medications Generic Name Dose Route Start Last Admin Trade Name Freq PRN Reason Stop Dose Admin Hydromorphone HCl 1 mg 08/25/20 19:40 08/25/20 19:55 Dilaudid IVPUSH 08/25/20 19:41 1 mg ONETIME ONE Administration Ondansetron HCl 4 mg 08/25/20 19:39 08/25/20 19:55 Zofran IVPUSH 08/25/20 19:40 4 mg ONETIME ONE Administration - Radiology Interpretation Free Text/Narrative:: Evidence of pancreatitis and fatty liver. No obstruction, ruptured viscus, or other acute pathology. - Re-Assessments/Exams Free Text/Narrative Re-Assessment/Exam: Pt. was given a liter of NS on arrival to ER. He was then started on NS at 120ml/hr. Pt. was given dilaudid 1 mg IV and zofran 4 mg IV for nausea/vomiting. He was afebrile and not toxic appearing. He remained hemodynamically stable during his stay in ER. Departure - Departure Time of Disposition: 21:03 Disposition: DC/Tfer to Acute Hospital 02 Clinical Impression: Pancreatitis - Discharge Information Referrals: Malina Freire MD [Primary Care Provider] - Forms: ED Department Discharge Sepsis Event Note (ED) - Evaluation Sepsis Screening Result: No Definite Risk - Focused Exam Vital Signs: Vital Signs Temp Pulse Resp BP Pulse Ox 08/25/20 19:51 166/112 H 08/25/20 19:37 36.8 C 124 H 24 H 212/123 H 100 - Problem List Review Problem List Initiated/Reviewed/Updated: Yes - My Orders Last 24 Hours: My Active Orders 08/25/20 19:38 AMYLASE [CHEM] Stat Blood Alcohol [ETHANOL BLOOD MEDICAL] [CHEM] Stat COMPREHENSIVE METABOLIC PN,CMP [CHEM] Stat CRP [C-REACTIVE PROTEIN] [CHEM] Stat DRUG SCREEN, URINE [URCHEM] Stat LIPASE [CHEM] Stat MAGNESIUM [CHEM] Stat TROPONIN I [CHEM] Stat UA RFX ELKE AND CULT IF INDIC [URIN] Stat Sodium Chloride 0.9% [Saline Flush] 10 ml FLUSH ASDIRECTED PRN Peripheral IV Insertion Adult [OM.PC] Routine 08/25/20 19:40 EKG Documentation Completion [RC] STAT 08/25/20 19:45 Sodium Chloride 0.9% [Normal Saline] 1,000 ml IV ASDIRECTED 08/25/20 19:57 Abdomen Pelvis w Cont [CT] Stat - Assessment/Plan Last 24 Hours: My Active Orders 08/25/20 19:38 AMYLASE [CHEM] Stat Blood Alcohol [ETHANOL BLOOD MEDICAL] [CHEM] Stat COMPREHENSIVE METABOLIC PN,CMP [CHEM] Stat CRP [C-REACTIVE PROTEIN] [CHEM] Stat DRUG SCREEN, URINE [URCHEM] Stat LIPASE [CHEM] Stat MAGNESIUM [CHEM] Stat TROPONIN I [CHEM] Stat UA RFX ELKE AND CULT IF INDIC [URIN] Stat Sodium Chloride 0.9% [Saline Flush] 10 ml FLUSH ASDIRECTED PRN Peripheral IV Insertion Adult [OM.PC] Routine 08/25/20 19:40 EKG Documentation Completion [RC] STAT 08/25/20 19:45 Sodium Chloride 0.9% [Normal Saline] 1,000 ml IV ASDIRECTED 08/25/20 19:57 Abdomen Pelvis w Cont [CT] Stat Plan: Pt. will be transferred to [facility]. He is a code 1. He will be transported via [facility] ground ambulance. He can have continued IV dilaudid for pain control. Dr. Travis accepts the patient in transfer.
[2020-08-25 20:17] LABS: PTT,PARTIAL THROMBOPLSTIN TIME 25.6 SEC (25.6-32.8)
[2020-08-25 20:34] LABS: ANION GAP 32.5 mmol/L (5-15); CHLORIDE,CL 92 mmol/L (98-107); SODIUM,NA 132 mmol/L (136-145)
[2020-08-25] MEDS: Iopamidol 612 MG/ML 100 ML Bottle IVPUSH ONE (20:48)
--- NOTE | 2020-08-25 20:55 | CT ---
[id number] CT/CT Abdomen Pelvis W IV EXAM: CT Abdomen Pelvis W IV CLINICAL DATA: ABDOMINAL PAIN COMPARISON: CORRELATION IS MADE WITH MARCH 19, 2019 FINDINGS: There is a fatty liver. The gallbladder is slightly distended. The gallbladder wall is normal. There is minimal edema in the pancreatic bed. Question of pancreatitis is raised The liver and spleen show no focal abnormalities There is a small upper pole right renal cyst There are atheromatous calcifications There is no free fluid or free air There is no bowel obstruction The mesenteric vessels demonstrate normal enhancement There is no definite mass in the pancreas The pelvis shows no mass or adenopathy There is no evidence of appendicitis There is streak artifact related to orthopedic lumbar surgical changes IMPRESSION: QUESTION OF PANCREATITIS FATTY LIVER NO OTHER ACUTE ABNORMALITY Shiv Bradley MD 08/25/202053 Thank you for allowing us to participate in the care of your patient.
[2020-08-25 21:04] VITALS: PULSE 105
[2020-08-25 22:19] VITALS: BP 161/69
== END 2020-08-25 22:33 | disposition short-term general hospital (02) ==
LOC: VM.ED 19:33
DX: K85.90 Acute pancreatitis without necrosis or infection, unspecified (principal); I10 Essential (primary) hypertension; Z79.82 Long term (current) use of aspirin; Z79.899 Other long term (current) drug therapy; Z88.0 Allergy status to penicillin; Z91.030 Bee allergy status
CPT/HCPCS: 74177; 80053; 80307; 82150; 83615; 83690; 83735; 84484; 85025; 85610; 85730; 86140; 93005; 93010; 96374; 96375; 96376; 99284; 99285-25; J1170; J2405; J7030; Q9967

== ENCOUNTER 2021-12-13 16:26 | Emergency (ER) | payer MEDICARE, OTHER ==
[2021-12-13] MEDS ORDERED: Succinylcholine 200 MG/10 ML MDV ONE ×2 (16:31→21:05)
[2021-12-13] MEDS ORDERED: Ondansetron 4 MG/2 ML SDV ONE (16:33)
[2021-12-13 17:09] LABS: CHLORIDE,CL 105 mmol/L (98-107); PTT,PARTIAL THROMBOPLSTIN TIME 25.8 SEC (20.5-30.9); SODIUM,NA 141 mmol/L (136-145)
[2021-12-13 17:10] LABS: ANION GAP 18.5 mmol/L (5-15)
[2021-12-13] MEDS ORDERED: propofoL 50 ML ONE (18:05)
[2021-12-13 18:12] LABS: BASE EXCESS ARTERIAL -13 mmol/L ((-2)-(+3)); BICARBONATE,ARTERIAL 15 mmol/L (21-28); PCO2 ARTERIAL 41 mmHG (35-48); PO2 ARTERIAL 194 mmHG (83-108)
[2021-12-13 18:43] LABS: BARBITURATE SCREEN,URINE NEGATIVE (NEGATIVE); BENZODIAZEPINES SCREEN,URINE POSITIVE (NEGATIVE); METHAMPHETAMINE SCREEN, URINE NEGATIVE (NEGATIVE); THC SCREEN,URINE 50 NG/ML POSITIVE (NEGATIVE)
[2021-12-13 18:44] LABS: BUPRENORPHINE SCREEN,URINE NEGATIVE (NEGATIVE)
[2021-12-13] MEDS ORDERED: Etomidate 2 MG/ML 10 ML SDV ONE (21:03)
[2021-12-13] MEDS ORDERED: Atropine 0.1 MG/ML 10 ML Syringe ONE (21:05)
[2021-12-13] MEDS ORDERED: Norepinephrine 4 MG/4 ML SDV ONE (21:05)
[2021-12-13] MEDS ORDERED: EPINEPHrine 1:10,000 1 MG/10 ML Syringe ONE (21:08)
[2021-12-13] MEDS ORDERED: Propofol 200 MG/20 ML SDV ONE (21:08)
[2021-12-13] MEDS ORDERED: Sodium Bicarbonate 8.4% 50 MEQ/50 ML Syringe ONE (21:08)
== END 2021-12-13 19:10 | disposition short-term general hospital (02) ==
LOC: VM.ED 16:26
DX: R40.20 Unspecified coma (principal); R00.1 Bradycardia, unspecified; I95.9 Hypotension, unspecified; I10 Essential (primary) hypertension; Z79.899 Other long term (current) drug therapy; Z79.82 Long term (current) use of aspirin; Z88.0 Allergy status to penicillin; Z91.030 Bee allergy status
CPT/HCPCS: 31500; 36415; 36600; 43752; 71045; 80053; 80305; 81001; 82140; 82803; 83605; 84484; 85025; 85610; 85730; 96361; 96374; 96375; 99291; 99292; J0330

== ENCOUNTER 2022-03-06 14:53 | Emergency (ER) | payer MEDICARE, OTHER ==
[2022-03-06] MEDS ORDERED: Sodium Chloride 0.9% 500 ML IV ONE (15:08)
[2022-03-06] MEDS ORDERED: Succinylcholine 200 MG/10 ML MDV ONE (15:14)
[2022-03-06] MEDS ORDERED: levETIRAcetam in NaCl (iso-os) 1,000 MG in Premix Bag 1 BAG IV ONE ×2 (15:18)
[2022-03-06] MEDS ORDERED: Midazolam 1 MG/ML 2 ML SDV ONE ×2 (15:21→17:28)
[2022-03-06 15:29] LABS: CHLORIDE,CL 99 mmol/L (98-107); ESTIMATED GFR 101 mL/min (>=60); SODIUM,NA 137 mmol/L (136-145)
[2022-03-06 15:46] LABS: BUPRENORPHINE SCREEN,URINE NEGATIVE (NEGATIVE)
[2022-03-06 15:47] LABS: BARBITURATE SCREEN,URINE NEGATIVE (NEGATIVE); BENZODIAZEPINES SCREEN,URINE POSITIVE (NEGATIVE); METHAMPHETAMINE SCREEN, URINE NEGATIVE (NEGATIVE); THC SCREEN,URINE 50 NG/ML POSITIVE (NEGATIVE)
[2022-03-06] MEDS ORDERED: Rocuronium 50 MG/5 ML Vial ONE (15:57)
[2022-03-06] MEDS ORDERED: Midazolam 50 MG in Sodium Chloride 0.9% 100 ML IV SCH (16:15)
[2022-03-06 16:23] LABS: CORONAVIRUS COVID-19 NAA NEGATIVE (NEGATIVE); RESPIRATORY SYNCYTIAL VIR NAA NEGATIVE (NEGATIVE)
[2022-03-06] MEDS: Rocuronium 50 MG/5 ML Vial ONE ×2 (16:55→17:01)
== END 2022-03-06 17:25 ==
LOC: VM.ED 14:53
DX: R56.9 Unspecified convulsions (principal); Z20.822 Contact with and (suspected) exposure to COVID-19
CPT/HCPCS: 0241U; 31500; 36415; 43752; 51702; 70450; 71045; 72125; 80053; 80305; 80307; 83605; 84484; 85025; 93005; 93010; 94002; 96361; 96365; 96375; 99285; J1953; J2250; J7030; J0330

== ENCOUNTER 2022-04-04 13:38 | Emergency (ER) | payer MEDICARE, OTHER ==
[~2022-04-04 13:38] MED LIST: Sodium Chloride 0.9% 1,000 ML IV ONE; Sodium Chloride 0.9% 10 ML Syringe FLUSH PRN
[2022-04-04 14:25] LABS: CHLORIDE,CL 107 mmol/L (98-107); SODIUM,NA 142 mmol/L (136-145)
[2022-04-04 14:26] LABS: ESTIMATED GFR 18 mL/min (>=60)
[2022-04-04 14:44] LABS: BARBITURATE SCREEN,URINE NEGATIVE (NEGATIVE); BENZODIAZEPINES SCREEN,URINE NEGATIVE (NEGATIVE); BUPRENORPHINE SCREEN,URINE NEGATIVE (NEGATIVE); METHAMPHETAMINE SCREEN, URINE NEGATIVE (NEGATIVE); THC SCREEN,URINE 50 NG/ML NEGATIVE (NEGATIVE)
[2022-04-04] MEDS ORDERED: cefTRIAXone 2 GM Vial IVPUSH SCH (14:45)
[2022-04-04] MEDS ORDERED: VANCOmycin 1.25 GM/250 ML 1.25 GM in Premix Bag 1 BAG IV ONE (14:53)
[2022-04-04] MEDS ORDERED: Sodium Chloride 0.9% 1,000 ML IV SCH (15:15)
[2022-04-04] MEDS ORDERED: Piperacillin/Tazobactam 4.5 GM in Sodium Chloride 0.9% 100 ML IV ONE (15:59)
[2022-04-04 16:31] VITALS: BP 91/55; PULSE 49
== END 2022-04-04 16:44 | disposition short-term general hospital (02) ==
LOC: VM.ED 13:38
DX: A41.9 Sepsis, unspecified organism (principal); J98.11 Atelectasis; E78.00 Pure hypercholesterolemia, unspecified; I10 Essential (primary) hypertension; Z87.891 Personal history of nicotine dependence; Z88.0 Allergy status to penicillin; Z91.030 Bee allergy status; Z20.822 Contact with and (suspected) exposure to COVID-19
CPT/HCPCS: 36415; 70450; 71045; 80053; 80305-QW; 80307; 81001; 83605; 83735; 85025; 87040; 93005; 93010; 96361; 96365; 96367; 96375; 99285; 99285-25; J0696; J2543; J3370; J7030; U0002